=== PATIENT | female | born 1990 | race Caucasian/White ===

== ENCOUNTER → 2016-04-27 | Outpatient (CLI) | payer OTHER ==
[~2016-04-27] MED LIST: CYCL-36 PO; DILA2TAB4 PO; IBUP-232 PO; LEVO.1 PO; NOVOLOGP2 SC
[2016-04-27 13:18] LABS: ALKALINE PHOSPHATASE 76 U/L (45-117); ALT (GPT) 17 U/L (10-53); ANION GAP 7 MEQ/L (5-15); AST (GOT) 13 U/L (15-37); BICARBONATE 28.4 MEQ/L (21.0-32.0); BLOOD UREA NITROGEN 7 MG/DL (7-18); CHLORIDE 101 MEQ/L (98-107); FREE T3 2.16 PG/ML (2.18-3.98); FREE T4 1.26 NG/DL (0.76-1.46); GLOMERULAR FILTRATION RATE 100 ML/MIN (>89); GLUCOSE,FASTING 80 MG/DL (74-99); POTASSIUM 4.8 MEQ/L (3.5-5.1); SODIUM (NA) 136 MEQ/L (136-145); TOTAL BILIRUBIN ADULT 0.9 MG/DL (0.2-1.0)
[2016-04-27 16:33] LABS: HEMOGLOBIN A1b 0.7 %; HEMOGLOBIN Ao 84.4 %; HEMOGLOBIN LA1C 1.6 %; HEMOGLOBIN P3 3.5 %
== END ==
LOC: PLAB 09:40
PROVIDERS: ATTEND Internal Medicine Endocrinology, Diabetes & Metabolism
DX: E10.9 Type 1 diabetes mellitus without complications (principal); E06.3 Autoimmune thyroiditis; E03.9 Hypothyroidism, unspecified
CPT/HCPCS: 80053; 82306; 83036; 84439; 84443; 84481